=== PATIENT | female | born 1985 | race African-American/Black ===

== ENCOUNTER 2017-05-07 15:34 | Emergency (ER) | payer OTHER, MEDICAID ==
[~2017-05-07] VITALS: Ht 157.5 cm; Wt 68.0 kg
[2017-05-07 15:47] VITALS: BP 138/85
[2017-05-07 16:15] LABS: APPEARANCE,URINE CLEAR; BILIRUBIN, URINE NEGATIVE (NEGATIVE); COLOR,URINE PALE YELLOW; GLUCOSE, URINE (UA) 1+ (NEGATIVE); KETONES,URINE NEGATIVE (NEGATIVE); LEUKOCYTE ESTERASE ,URINE NEGATIVE (NEGATIVE); NITRITE,URINE NEGATIVE (NEGATIVE); PH,URINE 5 (4.5-8.0); PROTEIN,URINE NEGATIVE (NEGATIVE); UROBILINOGEN,URINE NORMAL MG/DL (0.0-1.0)
[2017-05-07] MEDS ORDERED: Dicyclomine HCl 10mg/5ml oral soln ORAL ONE (16:30)
[2017-05-07] MEDS ORDERED: Mylanta II UD 30ml ORAL ONE (16:30)
[2017-05-07] MEDS ORDERED: Lidocaine 2% Visc 15ml soln ORAL ONE (16:30)
[2017-05-07] MEDS ORDERED: Docusate 100mg cap ORAL ONE (16:30)
--- NOTE | 2017-05-07 17:14 | Emergency Room Report ---
History of Present Illness General Chief Complaint: Abdominal Pain Source: Patient Present Illness HPI 31 presents to the ED c/o cramping abdominal pain x3 weeks with missed period x 2 weeks. pt reports nausea with two episodes of vomiting non-bloody. pt. reports constipation x 2 months and states she has BM every two days. she also has experienced urinary urgency, denies dysuria or hematuria. denies diarrhea. pt. denies blood in the stool, black tarry stools, or vomiting feces. Pt. also has dull JUDD x 2 weeks that is intermittent as well. denies photophobia. Denies CP, Palpitations, LOC, AMS, dizziness, Changes in Vision, Sensation, paresthesias, or a sudden severe headache. Allergies: Coded Allergies: No Known Allergies (Unverified , 05/07/17) Patient History Past Medical History: see triage record Past Surgical History: none Pertinent Family History: none Last Menstrual Period: 03/20/17 Reviewed Nursing Documentation: PMH: Agreed, PSxH: Agreed Nursing Documentation-PMH Hx Asthma: Yes Review of Systems All Other Systems: negative except mentioned in HPI Physical Exam Vital Signs Date Time Temp Pulse Resp B/P (MAP) Pulse Ox O2 Delivery O2 Flow Rate FiO2 05/07/17 15:47 97.9 99 18 138/85 99 Room Air Sp02 EP Interpretation: reviewed, normal General Appearance: no apparent distress, alert, GCS 15, non-toxic Head: normocephalic, atraumatic Eyes: bilateral eye normal inspection, bilateral eye PERRL ENT: hearing grossly normal, normal voice Neck: full range of motion Respiratory: lungs clear, normal breath sounds, speaking full sentences Cardiovascular #1: regular rate, rhythm, no edema Gastrointestinal: normal bowel sounds, non tender, soft, no guarding, other - Negative [place] signs, Negative MacBurney's sign, Negative [place] Sign, Negative Psoas, No Peritoneal signs. Rectal: deferred Genitourinary: normal inspection, no CVA tenderness Musculoskeletal: back normal, gait/station normal, normal range of motion, non- tender Neurologic: alert, oriented x3, responsive, motor strength/tone normal, sensory intact, speech normal Skin: normal color, no rash, warm/dry, well hydrated Lymphatic: no adenopathy Medical Decision Making PA Attestation Dr. vieira is my supervising Physician whom patient management has been discussed with. Diagnostic Impression: Primary Impression: Urinary urgency Additional Impressions: Abdominal pain Qualified Codes: R10.13 - Epigastric pain Constipation Qualified Codes: K59.09 - Other constipation History of asthma Nausea & vomiting Qualified Codes: R11.2 - Nausea with vomiting, unspecified Dehydration, mild ER Course 31 presents to the ED c/o cramping abdominal pain x3 weeks with missed period x 2 weeks. pt reports nausea with two episodes of vomiting non-bloody. pt. reports constipation x 2 months and states she has BM every two days. she also has experienced urinary urgency, denies dysuria or hematuria. denies diarrhea. pt. denies blood in the stool, black tarry stools, or vomiting feces. Pt. also has dull JUDD x 2 weeks that is intermittent as well. denies photophobia. Denies CP, Palpitations, LOC, AMS, dizziness, Changes in Vision, Sensation, paresthesias, or a sudden severe headache. Ddx considered but are not limited to Diverticulitis, acute appy, diarrhea,UC, PUD, GE, pancreatitis, gallstone, , SBO, constipation , dehydration just to name a few. Vital signs: are WNL, pt. is afebrile H&PE are most consistent with mild constipation, abdominal pain with N/V and possible ORDERS: - UA: Most indicative of contamination: presence of equal amounts of bacteria and squamous cells, no elevation in inflammatory markers, nitrite negative. -Urine Hcg: negative ED INTERVENTIONS: - -GI Cocktail -Excedrin migraine PO -I do not identify an emergent condition at this time. With current presentation , pt. is stable for close outpatient follow up and conservative treatment. D/ w pt. to return promptly to ED with worsening or new symptoms.- Pt. (and or responsible democrat) verbalizes' understanding and agreement with proposed treatment plan.proposed treatment plan. DISCHARGE: At this time pt. is stable for d/c to home. Will provide printed patient care instructions, and any necessary prescriptions. Care plan and follow up instructions have been discussed with the patient prior to discharge. Labs Test 05/07/17 15:50 Urine Color Pale yellow Urine Appearance Clear Urine pH 5 (4.5-8.0) Urine Specific [place] 1.025 (1.005-1.035) Urine Protein Negative (NEGATIVE) Urine Glucose (UA) 1+ (NEGATIVE) Urine Ketones Negative (NEGATIVE) Urine Occult Blood 1+ (NEGATIVE) Urine Nitrite Negative (NEGATIVE) Urine Bilirubin Negative (NEGATIVE) Urine Urobilinogen Normal MG/DL (0.0-1.0) Urine Leukocyte Esterase Negative (NEGATIVE) Urine RBC 0-2 /HPF (0 - 2) Urine WBC 0-2 /HPF (0 - 2) Urine Squamous Epithelial Cells Few /LPF (NONE/OCC) Urine Bacteria Few /HPF (NONE) Urine HCG, Qualitative Negative Last Vital Signs Date Time Temp Pulse Resp B/P (MAP) Pulse Ox O2 Delivery O2 Flow Rate FiO2 05/07/17 15:47 97.9 99 18 138/85 99 Room Air Disposition: HOME, SELF-CARE Condition: Stable Scripts Metoclopramide Hcl* (REGLAN*) 10 Mg Tablet 10 MG ORAL THREE TIMES A DAY Y for For Headache, #20 TAB Prov: Zaria Rubio.A. 05/07/17 Phenazopyridine Hcl* (PYRIDIUM*) 200 Mg Tablet 200 MG ORAL THREE TIMES A DAY for 3 Days, #9 TAB 0 Refills Prov: Zaria Rubio.A. 05/07/17 Mag Hydrox/Al Hydrox/Simeth (ALUM-MAG HYDROXIDE-SIMETH LIQ) 360 Ml Oral.susp 15 ML PO TID, #360 ML Prov: Zaria Rubio.A. 05/07/17 Albuterol Sulfate* (ALBUTEROL SULFATE MDI*) 8.5 Gm Hfa.aer.ad 2 PUFF INH Q4H, #1 INH 0 Refills Prov: Zaria Rubio. 05/07/17 Docusate Sodium* (COLACE*) 100 Mg Capsule 100 MG ORAL THREE TIMES A DAY, #30 CAP Prov: Zaria Rubio.A. 05/07/17 Patient Instructions: Abdominal Pain, Adult, Constipation, Adult, [id number] , Dehydration, Adult, [id number] Additional Instructions: Take medications as directed. Follow up with a Primary Care Provider in 3-5 days, even if your symptoms have resolved. --Please review list of primary care clinics, if you do not already have a primary care provider Return sooner to ED if new symptoms occur, or current symptoms become worse. - Please note that this Emergency Department Report was dictated using [employer] technology software, occasionally this can lead to erroneous entry secondary to interpretation by the dictation equipment. Zaria Rubio May 07, 2017 17:14
[2017-05-07] MEDS ORDERED: Excedrin Migraine tab ORAL ONE (17:15)
[2017-05-07] MEDS ORDERED: PHENAZOPYRIDIN200 MG ORAL (17:16)
[2017-05-07] MEDS ORDERED: ALBUTEROL SULF8.5 GM INH (17:16)
[2017-05-07] MEDS ORDERED: ALUM-MAG HYDRO360 ML PO (17:16)
[2017-05-07] MEDS ORDERED: COLACE100 MG ORAL (17:16)
[2017-05-07] MEDS ORDERED: REGLAN10 MG ORAL (17:16)
[2017-05-07 17:25] VITALS: BP 126/95
== END 2017-05-07 17:28 | disposition home or self-care (01) ==
LOC: EMR 15:59
DX: R39.15 Urgency of urination (principal); R10.9 Unspecified abdominal pain; K59.00 Constipation, unspecified; J45.909 Unspecified asthma, uncomplicated; R11.2 Nausea with vomiting, unspecified; E86.0 Dehydration
CPT/HCPCS: 81003; 81025; 99284

== ENCOUNTER 2017-07-12 08:48 | Emergency (ER) | payer OTHER, MEDICAID ==
[~2017-07-12] VITALS: Ht 157.5 cm; Wt 72.6 kg
[~2017-07-12 08:48] MED LIST: ALBUTEROL SULF8.5 GM INH; ALUM-MAG HYDRO360 ML PO; COLACE100 MG ORAL; PHENAZOPYRIDIN200 MG ORAL; REGLAN10 MG ORAL
[2017-07-12] MEDS ORDERED: HYDROXYZINE HCL25 M1 PO (09:46)
--- NOTE | 2017-07-12 09:52 | Emergency Room Report ---
History of Present Illness General Chief Complaint: Skin Rash/Abscess Source: Patient Present Illness HPI 31-year-old female no significant past medical history presenting with a rash to her body. Patient states that she had a large rash that developed in left upper back. This proceeded with multiple small rashes to her chest abdomen and back. Very itchy. No fever no chills No known medications, sparing the palms and soles got decadron at another facility did nothing for her Allergies: Coded Allergies: CITRUS AND DERIVATIVES (Verified Allergy, Unknown, Anaphylaxis, 07/12/17) FISH CONTAINING PRODUCTS (Verified Allergy, Unknown, Anaphylaxis, 07/12/17) Patient History Past Medical History: see triage record Past Surgical History: none Pertinent Family History: none Last Menstrual Period: Current Now: No Reviewed Nursing Documentation: PMH: Agreed, PSxH: Agreed Nursing Documentation-PMH Past Medical History: No History, Except For Hx Asthma: Yes Review of Systems All Other Systems: negative except mentioned in HPI Physical Exam Vital Signs Date Time Temp Pulse Resp B/P (MAP) Pulse Ox O2 Delivery O2 Flow Rate FiO2 07/12/17 08:54 98.2 129 18 129/87 100 Room Air 98.2 Sp02 EP Interpretation: reviewed, normal General Appearance: alert, GCS 15, non-toxic, mild distress Head: normocephalic, atraumatic Eyes: bilateral eye normal inspection, bilateral eye PERRL, bilateral eye EOMI ENT: normal ENT inspection, normal pharynx, normal voice, moist mucus membranes Neck: normal inspection, full range of motion, supple Respiratory: normal inspection, lungs clear, normal breath sounds, no respiratory distress, no retraction, no wheezing, speaking full sentences, chest symmetrical Cardiovascular #1: normal inspection, regular rate, rhythm, no edema, normal capillary refill Cardiovascular #2: 2+ radial (R), 2+ radial (L) Gastrointestinal: normal inspection, non tender, soft, non-distended, no guarding Musculoskeletal: normal inspection, back normal, normal range of motion, non- tender Neurologic: normal inspection, alert, oriented x3, responsive, motor strength/ tone normal, sensory intact, normal gait, speech normal Psychiatric: normal inspection, judgement/insight normal, memory normal Skin: other - Maculopapular rash noted on chest abdomen and back, 3 x 3 cm oval rash noted to left upper back Medical Decision Making Diagnostic Impression: Primary Impression: Pityriasis rosea-like skin eruption Additional Impression: Generalized maculopapular rash ER Course 31-year-old female with rash noted abdomen back, chest DDX: Appears to be pityriasis rosacea, rashes spearing the palms and soles, not vesicular to think of varicela No new medications, not in any respiratory distress Plan: None ER course: Patient has remained stable during ED stay. Disposition: Patient is to be discharged to home. Prescriptions given are hydroxyzine Patient is instructed to follow up with their primary care doctor within 5 days. Please note that this Emergency Department Report was dictated using [employer] clerk technology software, occasionally this can lead to erroneous entry secondary to interpretation by the dictation equipment Last Vital Signs Date Time Temp Pulse Resp B/P (MAP) Pulse Ox O2 Delivery O2 Flow Rate FiO2 07/12/17 08:54 98.2 129 18 129/87 100 Room Air 98.2 Disposition: HOME, SELF-CARE Condition: Improved Scripts Hydroxyzine Hcl (HYDROXYZINE HCL) 25 Mg Tablet 25 MG PO Q6H, #30 TAB 0 Refills Prov: Roxanna Boateng M.D. 07/12/17 Patient Instructions: Rash, Pityriasis Rosea Roxanna Boateng M.D. Jul 12, 2017 09:52
[2017-07-12 09:55] VITALS: BP 126/82
[2017-07-12 09:56] VITALS: BP 126/82
== END 2017-07-12 09:58 | disposition home or self-care (01) ==
LOC: EMR 09:20
DX: L42 Pityriasis rosea (principal); J45.909 Unspecified asthma, uncomplicated; Z91.013 Allergy to seafood; Z91.018 Allergy to other foods
CPT/HCPCS: 99283